=== PATIENT | female | born 1945 | race Caucasian/White ===

== ENCOUNTER 2019-04-06 11:55 | Emergency (ER) | payer MEDICARE, OTHER, SELFPAY ==
[2019-04-06 11:57] VITALS: BP 187/82; PULSE 78; RESP 14; TEMP 36.7; O2SAT 96
[2019-04-06 12:21] VITALS: RESP 18
--- NOTE | 2019-04-06 12:34 | ED.DCSUM_ITS ---
- ER Visit Summary Date of Service: 04/06/19 Chief Complaint: Laceration History of Present Illness: The patient is a 73 F who presents with a laceration to her left eyebrow. This happened prior to arrival. She hit the area on her car door. She did not lose consciousness. Denies vision changes or other associated symptoms. Her last tetanus immunization was 9 years ago. Denies blood thinners. Physical Examination: Afebrile vital signs unremarkable. Patient has a 2 cm linear full-thickness laceration to her eyebrow. Eye exam unremarkable. HEENT otherwise normal. Test Results: None indicated Emergency Department Course and Treatment: Wound was anesthetized with lidocaine, 2cc. Wound was cleaned with saline and Shur-Clens. Explored. No foreign bodies visualized. Closed with three 6-0 sutures combination of simple interrupted and vertical mattress. Patient was given wound care instructions. Follow-up with her doctor in 5 to 7 days for removal. Return right away for signs of infection. Treatment Plan: As above Disposition: Discharge Impression: 1. Facial laceration 2 cm This note was generated with [employer] dictation software. It may contain incorrect words, spelling, and punctuation that were not noted in review of the chart prior to signing ED Disposition - Plan for ED Patient: Referrals: Mike De La Rosa MD [Primary Care Provider] -
--- NOTE | 2019-04-06 12:36 | ED.DEP ---
ED Disposition - Plan for ED Patient: Instructions: LACERATION, Face (Suture or Tape) Referrals: Mike De La Rosa MD [Primary Care Provider] - Additional Instructions: have your doctor remove sutures in 5-7 days. return right away for signs of infection.
[2019-04-06 12:50] VITALS: RESP 18
== END 2019-04-06 12:51 | disposition home or self-care (01) ==
LOC: ED 12:44
PROVIDERS: Emergency Provider Emergency Medicine; Family Provider Internal Medicine; PCP Internal Medicine
DX: S01.112A Laceration without foreign body of left eyelid and periocular area, initial encounter (principal); W26.8XXA Contact with other sharp object(s), not elsewhere classified, initial encounter; Y93.89 Activity, other specified; Y92.89 Other specified places as the place of occurrence of the external cause; Y99.8 Other external cause status
CPT/HCPCS: 12011; 99282

== ENCOUNTER 2019-05-13 09:23 | Emergency (ER) | payer MEDICARE, OTHER, SELFPAY ==
[2019-05-13 09:25] VITALS: BP 180/94; PULSE 72; RESP 17; TEMP 36.4; O2SAT 98; BMI 32.4
[2019-05-13] MEDS: Diphth,Pertuss(Acell),Tet Vac 0.5 ML Vial IM (09:55)
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
== END 2019-05-13 10:23 | disposition home or self-care (01) ==
LOC: ED 10:07
PROVIDERS: Emergency Provider Emergency Medicine; Family Provider Internal Medicine; PCP Internal Medicine
DX: S61.412A Laceration without foreign body of left hand, initial encounter (principal); I10 Essential (primary) hypertension; Z79.899 Other long term (current) drug therapy; Z23 Encounter for immunization; W26.0XXA Contact with knife, initial encounter; Y93.89 Activity, other specified; Y92.89 Other specified places as the place of occurrence of the external cause; Y99.8 Other external cause status
CPT/HCPCS: 12001; 90471; 90715; 99283

== ENCOUNTER 2024-12-12 11:45 | Emergency (ER) | payer MEDICARE, OTHER, SELFPAY ==
[2024-12-12 11:45] VITALS: BP 189/90; PULSE 85; RESP 16; TEMP 36.8; O2SAT 98; BMI 32.6
--- NOTE | 2024-12-12 12:24 | RAD_ITS ---
PROCEDURE: CHEST 1 VIEW (PORTABLE) REASON FOR EXAM: Lightheadedness. TECHNIQUE: Frontal view of the chest. COMPARISON: Yesterday FINDINGS: EKG electrodes are seen. Increased markings are seen at the left lung base with blunting of the left costophrenic angle. This may represent either atelectasis at the left lung base with possible scarring. Early left basilar infiltrate can not be excluded. Tortuosity of the descending thoracic aorta. Calcified right hilar and right paratracheal lymph nodes. RAD/Chest 1 View (Portable) IMPRESSION: Increased markings at the left lung base with blunting of the left costophrenic angle suggestive of either atelectasis/scarring or early infiltrate. Clinical correlation recommended. Reading Location: [id number]
--- NOTE | 2024-12-12 12:24 | EKG12_ITS ---
Test Reason : CP Blood Pressure : */* mmHG Vent. Rate : 74 BPM Atrial Rate : 74 BPM P-R Int : 144 ms QRS Dur : 76 ms QT Int : 382 ms P-R-T Axes : 48 34 54 degrees QTcB Int : 424 ms Sinus rhythm with Premature atrial complexes Otherwise normal ECG Confirmed by Manuel Sierra ([id number]), video tape editor LB SANTOS ([id number]) on 12/14/2024 8:01:28 AM Referred By: DIVYA/GARFIELD Confirmed By: Manuel Sierra
[2024-12-12 12:33] LABS: Absolute Lymphocyte Count 1.61 X10^3/uL (0.83-4.51); Absolute Neutrophil Count 7.4 X10^3/uL (2.0-7.7); Basophil# 0.05 X10^3/uL; Basophil% 0.5 % (0-1); Eosinophil# 0.45 X10^3/uL; Eosinophils% 4.4 % (0-5); Hematocrit 41.5 % (37-47); Hemoglobin 13.5 g/dL (12.0-15.0); Lymphocyte # 1.61 X10^3/ul (0.83-4.51); Lymphocyte % 15.8 % (19-41); Mean Corp Hgb Conc 32.5 g/dL (32-36); Mean Corpuscular Volume 86.1 fL (81-99); Mean Platelet Vol. 9.4 fl (6.2-12.0); Monocyte# 0.64 X10^3/uL; Monocyte% 6.3 % (0-10); NRBC Flagged by Analyzer 0 % (0-5); Neutrophil # 7.41 X10^3/uL (2.7-7.7); Neutrophil % 72.5 % (47-70); Platelet Count 340 K/mm3 (150-450); RBC Distribution Width SD 43.8 fl (35.1-43.9); Red Blood Count 4.82 M/mm3 (4.2-5.4); White Blood Count 10.2 K/mm3 (4.4-11.0)
--- NOTE | 2024-12-12 12:34 | EX.ED.DYSGE1 ---
HPI <TAMIKO Maria - Last Filed: 12/12/24 15:08> History of Present Illness Chief Complaint: Chest Pain Narrative Narrative: Patient is a 79-year-old female with history of hypertension, hyperlipidemia, osteoporosis, hypothyroidism who presents to the emergency department with chest pain, shortness of breath. Patient states that she did have an episode like this 1 month ago. Today, the patient woke up, felt tightness in her chest. Patient states when she walked her chest pain got worse, she has worsening pain with inspiration. She states she did run some errands, and she continued to have pain and she is here for evaluation. Patient did travel by plane to [place] in the last week. She denies any fever or chills. Patient states she did have some episodes of lightheadedness. [facility] <TAMIKO Maria - Last Filed: 12/12/24 15:08> [facility] Medical History (Updated 12/12/24 @ 15:08 by TAMIKO Maria) Asthma Hyperlipidemia HTN (hypertension) Home Medications ?Medication ?Instructions ?Recorded ?Last Taken ?Type alendronate 70 mg tablet 70 mg PO DAILY 04/06/19 Unknown History atorvastatin 20 mg tablet 20 mg PO DAILY 04/06/19 Unknown History fluticasone propionate 115 1 puff inhalation DAILY 04/06/19 Unknown History mcg-salmeterol 21 mcg/actuation HFA inhaler fluticasone propionate 50 1 spray inhalation BID 04/06/19 Unknown History mcg/actuation nasal spray,suspension hydrochlorothiazide 12.5 mg tablet 12.5 mg PO DAILY 04/06/19 Unknown History levothyroxine 137 mcg tablet 137 mcg PO DAILY 04/06/19 Unknown History lisinopril 10 mg tablet 10 mg PO DAILY 04/06/19 Unknown History montelukast 10 mg tablet 10 mg PO DAILY 04/06/19 Unknown History Allergy/AdvReac Type Severity Reaction Status Date / Time aspirin Allergy Shortness Verified 12/12/24 11:47 of breath ibuprofen Allergy Rash Verified 12/12/24 11:47 sulfamethoxazole (From Allergy Rash Verified 12/12/24 11:47 Bactrim) trimethoprim (From Bactrim) Allergy Rash Verified 12/12/24 11:47 animal dander AdvReac Unknown Verified 12/12/24 11:47 mold AdvReac Unknown Verified 12/12/24 11:47 ragweed pollen AdvReac Unknown Verified 12/12/24 11:47 Social History Smoking Status: Never smoker ROS <TAMIKO Maria - Last Filed: 12/12/24 15:08> ROS ED ROS Narrative Constitutional: Negative for fever, chills, weight loss, weakness Eyes: Negative for vision loss, vision change, double vision ENT: Negative for any sore throat, ear pain, congestion Cardiovascular: Negative for any palpitations. Positive chest pain, tightness Respiratory: Negative for any cough, sputum production, hemoptysis, dyspnea, orthopnea. Positive dyspnea on exertion Gastrointestinal: Negative for any abdominal pain, nausea, vomiting, diarrhea, constipation, blood in stool, blood in vomit : Negative for any urinary frequency, dysuria, retention, blood in urine Muscle skeletal: Negative for any neck pain, back pain Neurological: Negative for any headache, syncope. Positive feeling lightheadedness, dizzy Skin: Negative for any rashes, itching, abrasions, lacerations Psychiatric: Negative for any depression, anxiety, stress, suicidal ideation, homicidal ideation Hematologic: Negative for any excessive bruising, easy bleeding EXAM <TAMIKO Maria - Last Filed: 12/12/24 15:08> Physical Exam Const Vital Signs: 12/12/24 11:45 12/12/24 12:07 12/12/24 12:24 Temperature 98.2 F Temperature Source Oral Pulse Rate 85 Respiratory Rate 16 Respiratory Effort Normal Blood Pressure 189/90 H Blood Pressure Mean 123 Pulse Ox 98 Oxygen Delivery Method Room Air Room Air 12/12/24 12:49 12/12/24 13:00 12/12/24 14:00 Temperature Temperature Source Pulse Rate 72 80 75 Respiratory Rate 16 16 16 Respiratory Effort Blood Pressure 143/65 H 157/82 H 145/58 H Blood Pressure Mean 91 107 87 Pulse Ox 98 95 95 Oxygen Delivery Method Room Air Room Air <Dr. Parveen Manzano MD - Last Filed: 12/12/24 13:45> Physical Exam Const Vital Signs: 12/12/24 11:45 12/12/24 12:07 12/12/24 12:24 Temperature 98.2 F Temperature Source Oral Pulse Rate 85 Respiratory Rate 16 Respiratory Effort Normal Blood Pressure 189/90 H Blood Pressure Mean 123 Pulse Ox 98 Oxygen Delivery Method Room Air Room Air 12/12/24 12:49 12/12/24 13:00 12/12/24 14:00 Temperature Temperature Source Pulse Rate 72 80 75 Respiratory Rate 16 16 16 Respiratory Effort Blood Pressure 143/65 H 157/82 H 145/58 H Blood Pressure Mean 91 107 87 Pulse Ox 98 95 95 Oxygen Delivery Method Room Air Room Air [facility] <Gold MitchellTAMIKO - Last Filed: 12/12/24 15:08> [facility] Lab Data Labs: Laboratory Results - last 24 hr 12/12/24 12/12/24 12:00 14:15 WBC 10.2 RBC 4.82 Hgb 13.5 Hct 41.5 MCV 86.1 MCH 28.0 MCHC 32.5 RDW Std Deviation 43.8 RDW Coeff of Felipe 14.0 Plt Count 340 MPV 9.4 Immature Gran % (Auto) 0.500 Neut % (Auto) 72.5 H Lymph % (Auto) 15.8 L [place] % (Auto) 6.3 Eos % (Auto) 4.4 Baso % (Auto) 0.5 Absolute Neuts (auto) 7.4 Absolute Lymphs (auto) 1.61 Nucleated RBC % 0 D-Dimer Quant (PE/DVT) 0.52 H* Sodium 139 Potassium 3.8 Chloride 104 Carbon Dioxide 26.0 Anion Gap 9 BUN 14 Creatinine 0.70 Estim Creat Clear Calc 62.60 Est GFR (MDRD) Af Amer 105 Est GFR (MDRD) Non-Af 87 BUN/Creatinine Ratio 20.1 H Glucose 84 Calcium 9.9 Total Bilirubin 0.60 Direct Bilirubin 0.10 AST 17 ALT 29 Alkaline Phosphatase 86 Troponin I High Sens 6 4 Total Protein 7.6 Albumin 3.3 Globulin 4.3 H Lipase 29 L Radiography Diagnostic Testing: Clinical Impression(s) from Imaging Studies Chest X-Ray 12/12/24 12:24 IMPRESSION: Increased markings at the left lung base with blunting of the left costophrenic angle suggestive of either atelectasis/scarring or early infiltrate. Clinical correlation recommended. Reading Location: [facility] EKG Sinus rhythm with PACs: Attestation: I personally reviewed and interpreted this EKG as follows: Interpretation: Sinus Rhythm Comments: Sinus rhythm with PACs, rate of 74 bpm, NE interval 144 ms, QRS duration 76 ms, no acute ST elevation, no acute infarct noted. Treatment and Re-Evaluation :: Differential diagnosis includes however is not limited to: ACS, PR, PE, unstable angina, GERD, acute cholecystitis, pancreatitis, anxiety Patient appears generally well, vital signs are stable, patient is nontoxic-appearing. Presenting to the emergency department with complaints of midsternal chest pain, dyspnea, dyspnea on exertion. Pay states he did have some dizziness. Patient received a full cardiac workup including 2 troponins, secondary the patient's history of air travel in the last week, D-dimer will be ordered. Patient at this time states her pain is a 1-2 out of 10. She states is much more improved. She did have something like this similarly 1 month ago. 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 Here for evaluation. All radiologic examinations were read, reviewed by the emergency department attending. From these reads, a plan of care will be put in place. Patient CBC was unremarkable, patient's D-dimer was elevated at 0.52 however age-adjusted, second of the patient being 79 this is negative. Chemistries were unremarkable, lipase was negative. Initial troponin was 6 which is negative. A repeat troponin will be ordered. Chest x-ray showed no acute process, there is some atelectasis to the left lung base however patient has no cough, no fever or chills. There is no evidence of suspected any pneumonia. Patient received a repeat troponin. Patient's repeat troponin was negative. At this time, patient is sitting in the room, she is not any distress. Patient is no chest pain. Patient will continue to follow-up outpatient. He is happy the plan of care, all questions answered, stable for discharge. Patient has no evidence to suspect any PE, ACS or PR. <Dr. Parveen Manzano MD - Last Filed: 12/12/24 13:45> [facility] Narrative Medical decision making narrative: I have personally performed a face to face assessment of the patient and have reviewed the SYLVESTER Note. I performed a substantive portion of the visit including all aspects of the following. My العلي findings include: History is [79-year-old female with atypical epigastric lower chest discomfort since this morning. No history of cardiac disease. No history of DVT or PE. Recent travel to [place] she flew. No leg pain or swelling. No pleuritic pain. No hemoptysis. No recent exertional chest pain or exertional dyspnea. Denies recent illness. No vomiting, diarrhea or fever. No melena.] Exam is [well-appearing 79-year-old female. Vital signs stable afebrile. Pulse ox 95% on room air no hypoxia. H EENT exam unremarkable. Pupils round reactive light. Moist mucous membranes. No droop. Normal speech. Neck nontender no lymphadenopathy. No JVD. Lungs clear to auscultation bilaterally. Heart regular rhythm no murmur. Chest wall and ribs nontender. There is no reproducible pain on her sternum or anterior rib cage. There is no ecchymosis or bruising. No subcu air. Her xiphoid process and epigastric area are nontender. Abdomen is soft, nontender, nondistended normal bowel sounds without peritoneal signs. Right upper or right lower quadrants are unremarkable. Patient is moving all 4 extremities. Calves are nontender without edema or cords. Normal strength. Normal range of motion. Back nontender. Neurologically she is awake and alert no focal motor deficits.] Medical Decision Making [79-year-old with atypical lower chest epigastric pain. Cardiac workup is unremarkable as is the lipase. As are her liver enzymes. 2-hour troponin be obtained as long as its negative she will be discharged home.] Other additions or changes: [None] Lab Data Attestation: I reviewed the patient's lab results. Lab results narrative: CBC normal. White count of 10. H&H 13 and 41. Platelets 340. Electrolytes unremarkable gap 9. Normal BUN and creatinine. Glucose 84. Liver enzymes normal. Lipase 29. Initial troponin 6. D-dimer 0.52. Normal considering her age. Chest x-ray unremarkable. Labs: Laboratory Results - last 24 hr 12/12/24 12/12/24 12:00 14:15 WBC 10.2 RBC 4.82 Hgb 13.5 Hct 41.5 MCV 86.1 MCH 28.0 MCHC 32.5 RDW Std Deviation 43.8 RDW Coeff of Felipe 14.0 Plt Count 340 MPV 9.4 Immature Gran % (Auto) 0.500 Neut % (Auto) 72.5 H Lymph % (Auto) 15.8 L [place] % (Auto) 6.3 Eos % (Auto) 4.4 Baso % (Auto) 0.5 Absolute Neuts (auto) 7.4 Absolute Lymphs (auto) 1.61 Nucleated RBC % 0 D-Dimer Quant (PE/DVT) 0.52 H* Sodium 139 Potassium 3.8 Chloride 104 Carbon Dioxide 26.0 Anion Gap 9 BUN 14 Creatinine 0.70 Estim Creat Clear Calc 62.60 Est GFR (MDRD) Af Amer 105 Est GFR (MDRD) Non-Af 87 BUN/Creatinine Ratio 20.1 H Glucose 84 Calcium 9.9 Total Bilirubin 0.60 Direct Bilirubin 0.10 AST 17 ALT 29 Alkaline Phosphatase 86 Troponin I High Sens 6 4 Total Protein 7.6 Albumin 3.3 Globulin 4.3 H Lipase 29 L Radiography Chest X-Ray - ED: 1 View, Read by ED Physician, Read by Radiologist, Heart, Lungs, Mediastinum, Bony Structures, No Acute Disease and Chronic Changes Diagnostic Testing: Clinical Impression(s) from Imaging Studies Chest X-Ray 12/12/24 12:24 IMPRESSION: Increased markings at the left lung base with blunting of the left costophrenic angle suggestive of either atelectasis/scarring or early infiltrate. Clinical correlation recommended. Reading Location: [facility] Chest x-ray, portable, single view interpreted by myself and the radiologist shows no acute abnormality. Normal cardiac silhouette. Normal lung gregory. Rhythm Strip Rhythm Strip: Sinus Rhythm Rate: 74 Ectopy: None Discharge Plan Triage Chief Complaint: Chest Pain ED Midlevel Provider: Gold Mitchell ED Provider: Parveen Manzano Dx/Rx/DC Orders Clinical Impression: Chest pain, Acute dyspnea Instructions: ED Chest Pain, Noncardiac, ED Dyspnea Prescriptions: No Action levothyroxine 137 MCG tablet 137 mcg PO DAILY atorvastatin 20 MG tablet 20 mg PO DAILY alendronate 70 MG tablet 70 mg PO DAILY lisinopril 10 MG tablet 10 mg PO DAILY montelukast 10 MG tablet 10 mg PO DAILY fluticasone propionate 16 GM spray,suspension 1 spray inhalation BID fluticasone propion-salmeterol 1 PUFF inhaler 1 puff inhalation DAILY hydrochlorothiazide 12.5 MG tablet 12.5 mg PO DAILY Primary Care Provider: Mike De La Rosa Referrals: Mike De La Rosa MD [Primary Care Provider] - Activity Restrictions/Additional Instructions: Please continue to follow-up. Print Language: Prydeinig Disposition Disposition: Home, Self Care
[2024-12-12 12:49] VITALS: BP 143/65; PULSE 72; RESP 16; O2SAT 98
[2024-12-12 12:58] LABS: D-Dimer Quantitative (DVT/PE) 0.52 FEU/ug/m (0.27-0.49)
[2024-12-12 13:00] VITALS: BP 157/82; PULSE 80; RESP 16; O2SAT 95
[2024-12-12 13:21] LABS: AST(SGOT) 17 U/L (15-37); Alanine Aminotransfer ALT/SGPT 29 U/L (13-56); Albumin, Serum 3.3 g/dL (3.2-5.0); Alkaline Phosphatase 86 U/L (45-117); Anion Gap 9 (5-15); BUN 14 mg/dL (7-18); BUN/Creat Ratio 20.1 RATIO (10-20); Calcium,Total 9.9 mg/dL (8.5-10.1); Chloride 104 mmol/L (98-107); EST Glomerular Filtration Rate 87 mL/min (>60); Est Glom Filt Rate - Afr Amer 105 mL/min (>60); Globulin 4.3 g/dL (2.2-4.2); Glucose 84 mg/dL (74-106); Lipase 29 U/L (73-393); Potassium 3.8 mmol/L (3.5-5.1); Protein, Total 7.6 g/dL (6.4-8.2); Sodium Level 139 mmol/L (136-145); Troponin-I HS (w/2H Reflex) 6 pg/mL (3.0-54.0)
[2024-12-12 14:00] VITALS: BP 145/58; PULSE 75; RESP 16; O2SAT 95
[2024-12-12 14:29] LABS: Reflex Troponin-HS? (from REC) Y
[2024-12-12 14:45] LABS: Troponin-I HS 4 pg/mL (3.0-54.0)
[2024-12-12 15:22] VITALS: BP 136/72; PULSE 78; RESP 15; TEMP 36.7; O2SAT 99
== END 2024-12-12 15:24 | disposition home or self-care (01) ==
PROVIDERS: Nurse Practitioner; Emergency Provider Emergency Medicine; PCP Internal Medicine; Visit Provider Emergency Medicine
DX: R07.9 Chest pain, unspecified (principal); R06.00 Dyspnea, unspecified; E78.5 Hyperlipidemia, unspecified; I10 Essential (primary) hypertension; E03.9 Hypothyroidism, unspecified; J45.909 Unspecified asthma, uncomplicated
CPT/HCPCS: 71045; 80048; 80076; 83690; 84484; 85025; 85379; 93005; 99284; A4216